=== PATIENT | male | born 1965 | race Caucasian/White ===

== ENCOUNTER 2016-12-22 05:53 | Emergency (ER) | payer BC ==
[2016-12-22] MEDS ORDERED: Phenergan 25 MG INJ ONE ×2 (06:11→07:14)
[2016-12-22] MEDS ORDERED: Sodium Chloride 0.9% 1000 ML 1,000 ML ONE (06:11)
[2016-12-22] MEDS ORDERED: Phenergan 25 MG INJ IV ONE ×2 (06:16→07:06)
[2016-12-22] MEDS ORDERED: Sodium Chloride 0.9% 1000 ML 1,000 ML IV SCH (06:30)
--- NOTE | 2016-12-22 06:40 | ERPHSYRPT ---
- History of Present Illness Time Seen by Provider: 12/22/16 05:54 Source: patient Exam Limitations: no limitations Patient Subjective Stated Complaint: AWOKE WITH DIZZINESS AND NAUSEA - DENIES PAIN - STATES THAT HE HAS TINGLING KANDIS HANDS - 'UNABLE TO WALK" - REPORTS CHILLS - GENERALIZED WEAKNESS Triage Nursing Assessment: WC TO TREATMENT AREA - UNSTEADY GAIT TO CART - MOVES ALL EXTREMITIES WITH EQUAL STRENGTH. ALERT/ORIENTED - UNPLEASANT AFFECT. SKIN PALE/COOLE/CLAMMY - NO RASH/INJURY. RESPS EASY - NON-LABORED Physician History: ABOUT 20 MINUTES AGO PT AWOKE WITH DIZZINESS(ROOM SPINNING), CHILLS, NAUSEA, DIAPHORESIS, GENERALIZED WEAKNESS AND TINGLING IN HANDS AND FEET. Allergies/Adverse Reactions: No Known Drug Allergies Allergy (Unverified 12/22/16 06:05) Home Medications: Meloxicam 15 mg [Meloxicam 15 MG] 15 mg PO DAILY 06/27/16 [History] Testosterone Cypionate 200 mg IM UD 07/05/16 [History] Tramadol HCl 50 mg [Ultram 50 mg] 1 tab PO Q6H PRN PRN 07/05/16 [History] Hx Tetanus, Diphtheria Vaccination/Date Given: Yes Hx Influenza Vaccination/Date Given: No Hx Pneumococcal Vaccination/Date Given: No Immunizations Up to Date: Yes - Review of Systems Constitutional: Chills, Weakness (GENERALIZED) Abdominal/Gastrointestinal: Nausea Neurological: Dizziness, Sensory Changes (TINGLING IN HANDS AND FEET TODAY.) Endocrine: Excessive Sweating All Other Systems: Reviewed and Negative - Past Medical History Pertinent Past Medical History: Yes Musculoskeletal History: Arthritis - Past Surgical History Past Surgical History: Yes Gastrointestinal: Cholecystectomy - Social History Smoking Status: Current every day smoker Exposure to second hand smoke: No Drug Use: none Patient Lives Alone: No - Nursing Vital Signs Nursing Vital Signs: Initial Vital Signs Temperature 97.4 F Temperature Source Oral Pulse Rate 62 Respiratory Rate 16 Blood Pressure [] 136/65 Pain Intensity 0 - Physical Exam General Appearance: alert Eye Exam: PERRL/EOMI Ears, Nose, Throat Exam: TMs normal, pharynx normal, moist mucous membranes Neck Exam: normal inspection, full range of motion Respiratory Exam: lungs clear Cardiovascular Exam: normal heart sounds Gastrointestinal/Abdomen Exam: soft, normal bowel sounds Back Exam: normal range of motion Extremity Exam: normal inspection, No pedal edema Neurologic Exam: alert, cooperative, herb counselor II-XII nml as tested, sensation nml, No motor deficits, No facial droop Skin Exam: warm, dry SpO2 Interpretation: normal SpO2: 98 Oxygen Delivery: Room Air - Course Nursing assessment & vital signs reviewed: Yes EKG Interpreted by Me: RATE (71), Sinus Rhythm, NORMAL AXIS, NORMAL INTERVALS - Radiology Exams Chest X-ray Interpretation: Interpreted by me, No Pneumonia - CT Exams Head CT Interpretation: Tele-radiologist Report (NO ACUTE INTRACRANIAL ABNORMALITY) Ordered Tests: Active Orders 24 hr Category Date Time Status Senior Android Software Engineer STAT Care 12/22/16 06:16 Active Clean Catch Urine Specimen STAT Care 12/22/16 06:16 Active EKG-ER Only STAT Care 12/22/16 06:16 Active IV Insertion STAT Care 12/22/16 06:16 Active Pulse Oximetry (ED) STAT Care 12/22/16 06:16 Active CHEST 1 VIEW (PORTABLE) Stat Exams 12/22/16 06:17 Taken HEAD WITHOUT CONTRAST [CT] Stat Exams 12/22/16 06:18 Taken AMYLASE Stat Lab 12/22/16 05:30 Completed CBC W DIFF Stat Lab 12/22/16 05:30 Completed CMP Stat Lab 12/22/16 05:30 Completed LIPASE Stat Lab 12/22/16 05:30 Completed MAGNESIUM Stat Lab 12/22/16 05:30 Completed Manual Differential NC Stat Lab 12/22/16 05:30 Completed TROPONIN Q3H Lab 12/22/16 05:30 Completed TROPONIN Q3H Lab 12/22/16 09:30 Ordered TROPONIN Q3H Lab 12/22/16 12:30 Ordered TROPONIN Q3H Lab 12/22/16 15:30 Ordered TROPONIN Q3H Lab 12/22/16 18:30 Ordered UA Stat Lab 12/22/16 06:17 Ordered Urine Triage Profile Stat Lab 12/22/16 06:17 Ordered Medication Summary Generic Name Dose Route Start Last Admin Trade Name Freq PRN Reason Stop Dose Admin Sodium Chloride 1,000 mls @ 100 mls/hr 12/22/16 06:30 12/22/16 06:20 Sodium Chloride 0.9% 1000 Ml IV 01/21/17 06:29 100 mls/hr .Q10H CARLOS Administration Magnesium Sulfate/Dextrose 100 mls @ 200 mls/hr 12/22/16 07:40 Magnesium 1 Gm / 100 Ml D5w IV 12/22/16 08:09 STAT ONE Potassium Chloride 40 meq 12/22/16 10:00 Potassium Chl 40 Meq/30 Ml Oral Solution PO 01/21/17 09:59 DAILY CARLOS Discontinued Medications Generic Name Dose Route Start Last Admin Trade Name Azalea PRN Reason Stop Dose Admin Sodium Chloride Confirm 12/22/16 06:11 Sodium Chloride 0.9% 1000 Ml Administered 12/22/16 06:12 Dose 1,000 mls @ ud .ROUTE .STK-MED ONE Promethazine HCl Confirm 12/22/16 06:11 Phenergan 25 Mg Inj Administered 12/22/16 06:12 Dose 25 mg .ROUTE .STK-MED ONE Promethazine HCl 12.5 mg 12/22/16 06:16 12/22/16 06:20 Phenergan 25 Mg Inj IV 12/22/16 06:17 12.5 mg STAT ONE Administration Promethazine HCl 6.25 mg 12/22/16 07:06 12/22/16 07:17 Phenergan 25 Mg Inj IV 12/22/16 07:07 6.25 mg STAT ONE Administration Promethazine HCl Confirm 12/22/16 07:14 Phenergan 25 Mg Inj Administered 12/22/16 07:15 Dose 25 mg .ROUTE .STK-MED ONE Lab/Rad Data: Laboratory Result Diagrams 12/22/16 05:30 12/22/16 05:30 Laboratory Results 12/22/16 12/22/16 12/22/16 Range/Units 05:30 05:30 05:30 WBC 13.0 H (4.0-10.5) K/mm3 RBC 5.45 (4.1-5.6) M/mm3 Hgb 16.4 (12.5-18.0) gm/dl Hct 47.2 (42-50) % MCV 86.6 (78-100) fl MCH 30.1 (26-32) pg MCHC 34.7 (32-36) g/dl RDW 14.7 H (11.5-14.0) % Plt Count 306 (150-450) K/mm3 MPV 10.6 H (6-9.5) fl Sodium 137 (136-145) mEq/L Potassium 3.3 L (3.5-5.1) mEq/L Chloride 101 (98-107) mEq/L Carbon Dioxide 22.8 (21-32) mEq/L Anion Gap 16.2 H (5-15) MEQ/L BUN 17 (9-20) mg/dL Creatinine 1.32 H (0.55-1.30) mg/dl Estimated GFR > 60 ML/MIN Glucose 162 H (70-110) MG/DL Calcium 8.7 (8.5-10.1) mg/dL Magnesium 1.7 L (1.8-2.4) mg/dL Total Bilirubin 1.3 H (0.2-1.0) mg/dL AST 29 (15-37) U/L ALT 37 (12-78) U/L Alkaline Phosphatase 45 L (46-116) U/L Troponin I < 0.017 (0.000-0.056) ng/ml Serum Total Protein 7.1 (6.4-8.2) gm/dL Albumin 4.2 (3.4-5.0) g/dL Amylase 42 (25-115) U/L Lipase 142 (73-393) U/L - Departure Time of Disposition: 07:57 Departure Disposition: Home Clinical Impression: VERTIGO, HYPOKALEMIA, HYPOMAGNESEMIA Condition: Fair Critical Care Time: No Instructions: Vertigo Additional Instructions: FOLLOW UP WITH PRIVATE DOCTOR TOMORROW. Prescriptions: Promethazine HCl 25 mg [Phenergan 25 mg] 25 mg PO Q4H PRN PRN #14 tablet PRN Reason: Nausea/Vomiting Meclizine HCl 25 mg [Antivert 25 mg] 25 mg PO Q8HPRN PRN #20 tablet PRN Reason: Dizziness
[2016-12-22 06:48] LABS: Mean Cell Volume 86.6 fl (78-100); Mean Corpuscular Hemoglobin 30.1 pg (26-32); Mean Platelet Volume 10.6 fl (6-9.5); Platelet Count 306 K/mm3 (150-450); Red Blood Count 5.45 M/mm3 (4.1-5.6); Red Cell Distribution Width 14.7 % (11.5-14.0)
[2016-12-22 07:12] LABS: ALBUMIN 4.2 g/dL (3.4-5.0); ALKALINE PHOSPHATASE 45 U/L (46-116); ANION GAP 16.2 MEQ/L (5-15); BILIRUBIN,TOTAL 1.3 mg/dL (0.2-1.0); BLOOD UREA NITROGEN 17 mg/dL (9-20); CHLORIDE 101 mEq/L (98-107); Carbon Dioxide 22.8 mEq/L (21-32); Glucose 162 MG/DL (70-110); LIPASE 142 U/L (73-393); MAGNESIUM 1.7 mg/dL (1.8-2.4); Potassium 3.3 mEq/L (3.5-5.1); SGOT/AST 29 U/L (15-37); SGPT/ALT 37 U/L (12-78); SODIUM 137 mEq/L (136-145); Total Protein 7.1 gm/dL (6.4-8.2)
[2016-12-22] MEDS ORDERED: Magnesium 1 Gm / 100 Ml D5W*** 100 ML IV ONE ×2 (07:40→07:55)
[2016-12-22 07:54] VITALS: O2SAT 98
[2016-12-22] MEDS ORDERED: POTASSIUM CHL 40 MEQ/30 ML ORAL SOLUTION ONE (07:55)
[2016-12-22 08:12] LABS: Collection Type CCMS
[2016-12-22 08:13] LABS: COMPLETE URINE MICROSCOPIC? NO
--- NOTE | 2016-12-22 09:00 | XRAY ---
Indication: Dizziness. Comparison: None Portable chest demonstrates normal heart, lungs, and bony thorax.
--- NOTE | 2016-12-22 09:01 | XRAY ---
Indication: Dizziness, nausea, bilateral hand tingling, and unsteady gait. Multiple contiguous axial images obtained through the head without contrast. Comparison: None Normal appearing brain parenchyma, ventricles, and bony calvarium. Visualized paranasal sinuses and mastoid air cells are pneumatized and clear. Impression: Normal CT head without contrast exam. Comment: Preliminary interpretation was made by [facility]. No discrepancy. CTDI 69.52
[2016-12-22 09:21] VITALS: BP 95/61; PULSE 63
[2016-12-22] MEDS ORDERED: POTASSIUM CHL 40 MEQ/30 ML ORAL SOLUTION PO SCH (10:00)
[2016-12-22 11:58] LABS: Eosinophil 6 % (0.00-3.0); Total Cells Counted 100
[2016-12-22 11:59] LABS: Platelet Estimate NORMAL (NORMAL)
== END 2016-12-22 10:20 | disposition home or self-care (01) ==
LOC: ED 05:53
DX: R42 Dizziness and giddiness (principal); E87.6 Hypokalemia; E83.42 Hypomagnesemia; R11.0 Nausea; R20.2 Paresthesia of skin; R61 Generalized hyperhidrosis
CPT/HCPCS: 36000; 36415; 70450; 71010; 80053; 80307; 81002; 82150; 83690; 83735; 84484; 85025; 93005; 93041; 96360; 96361; 96365; 96374; 96375; 99285; J2550; J3475

== ENCOUNTER 2021-08-26 02:26 | Emergency (ER) | payer BC, OTHER ==
[2021-08-26] MEDS ORDERED: MORPHINE SULFATE 4 MG INJ ONE (02:57)
[2021-08-26] MEDS ORDERED: Zofran 4 MG/2 ML VIAL ONE (02:57)
[2021-08-26] MEDS: MORPHINE SULFATE 4 MG INJ IV ONE (03:00)
[2021-08-26] MEDS: Zofran 4 MG/2 ML VIAL IV ONE (03:00)
[2021-08-26 03:15] LABS: Absolute Neutrophil Ct (ANC) 17.12 (1.4-6.9); BASOPHIL % 0.4 % (0.0-0.4); Basophil (Absolute #) 0.08 (0-0.4); Eosinophil % 3.5 % (0.00-5.0); Eosinophil (Absolute #) 0.73 (0-0.5); Hematocrit 50.3 % (42-50); Lymphocyte (Absolute #) 1.56 (1.0-4.6); Lymphocytes % 7.4 % (24.0-44.0); Mean Cell Volume 92.6 fl (78-100); Mean Corpuscular Hemoglobin 31.3 pg (26-32); Mean Corpuscular Hgb Concent. 33.8 g/dl (32-36); Mean Platelet Volume 10.3 fl (7.5-11.0); Monocyte (Absolute #) 1.46 (0.0-1.3); Neutrophil % 81.7 % (36.0-66.0); Platelet Count 263 K/mm3 (150-450); Red Blood Count 5.43 M/mm3 (4.1-5.6); Red Cell Distribution Width 13.5 % (11.5-14.0)
[2021-08-26 03:28] LABS: ALBUMIN 4.4 g/dL (3.5-5.0); ALKALINE PHOSPHATASE 63 U/L (38-126); ANION GAP 12.8 MEQ/L (5-15); BLOOD UREA NITROGEN 12 mg/dL (9-20); CHLORIDE 98 mmol/L (98-107); Calcium 9.7 mg/dL (8.4-10.2); Carbon Dioxide 28 mmol/L (22-30); Creatinine 1 1.12 mg/dL (0.66-1.25); EST GLOMERULAR FILTRATION RATE > 60.0 ML/MIN; Glucose 109 mg/dL (74-106); Potassium 3.9 mmol/L (3.5-5.1); SGOT/AST 24 U/L (17-59); SGPT/ALT 30 U/L (0-50); SODIUM 135 mmol/L (137-145)
--- NOTE | 2021-08-26 04:11 | ERPHSYRPT ---
- History of Present Illness Time Seen by Provider: 08/26/21 02:49 Source: patient Exam Limitations: no limitations Patient Subjective Stated Complaint: "I had neck surgery and its hurting and stiff." Triage Nursing Assessment: The patient reported having cervical spine surgery at [facility] on 08/13/21. He reported that since the surgery he has had no complications. His first follow-up with 09/11/[address] Huitron. he reported a two day onset of increasing pressure, pain, and drainage from the site. He also reported having chills and cold sweats at home. Single vertical incision noted to over the lower cervical spine with bandage in place. Upon removing the bandage, a well approximated surgical incision was found and noted to have two e xposed sutures, one at the upper most border and one at the lower most border of the incision. Mild serosanguenous drainage was noted to be coming from the bottom of the incision. Surround skin with slight erythema/edema. pain elicited with palpation. Physician History: 56 years old male status post cervical spine surgery C6/C7 on 08/13/2021 presented in the ER with 2 days history of gradually increasing swelling around incision area with some redness and noticed some serosanguineous discharge with associated increased stiffness tightness pressure in the back of neck on the left side. Difficulty movements of neck because of pressure and moderate intensity sharp pain and earlier spiked a temperature of 102.4. Patient is taking muscle relaxants which does not seem helping. Patient called his primary surgeon Dr. Stanford at [place] who was going to see him in the morning but decided to reported the ER because of fever earlier. No numbness tingling or weakness of upper or lower extremities. Timing/Duration: day(s) (2), gradual onset, worse Quality: painful Severity: moderate Location: neck Possible Causes: other Associated Symptoms: swelling/mass/lumps Allergies/Adverse Reactions: No Known Drug Allergies Allergy (Unverified 08/26/21 02:32) Home Medications: Testosterone Cypionate 200 mg IM UD 07/05/16 [History] Losartan Potassium 100 mg PO DAILY 08/26/21 [History] Hx Tetanus, Diphtheria Vaccination/Date Given: Yes Hx Influenza Vaccination/Date Given: No Hx Pneumococcal Vaccination/Date Given: No Travel Risk - International Travel Have you traveled outside of the country in past 3 weeks: No - Coronavirus Screening Are you exhibiting any of the following symptoms?: No - Vaccine Status Have you recieved a Covid-19 vaccination: Yes [employer] Associate: Pfizer - Vaccination Dates Date of 2cond Vaccination (if applicable): 12/2020 - Review of Systems Constitutional: Fever, Chills Eyes: No Symptoms Ears, Nose, & Throat: No Symptoms Respiratory: No Symptoms Cardiac: No Symptoms Abdominal/Gastrointestinal: No Symptoms Genitourinary Symptoms: No Symptoms Musculoskeletal: Neck Pain Skin: Cellulitis Neurological: No Symptoms Psychological: No Symptoms Hematologic/Lymphatic: No Symptoms Immunological/Allergic: No Symptoms - Past Medical History Pertinent Past Medical History: Yes Musculoskeletal History: Arthritis - Past Surgical History Past Surgical History: Yes Gastrointestinal: Cholecystectomy Other Surgical History: Tricep tear repair. C-spine surgery - Social History Smoking Status: Never smoker Exposure to second hand smoke: No Drug Use: none Patient Lives Alone: No - Nursing Vital Signs Nursing Vital Signs: Initial Vital Signs Temperature 97.2 F 08/26/21 02:27 Pulse Rate 108 H 08/26/21 02:27 Respiratory Rate 18 08/26/21 02:27 Blood Pressure 155/82 08/26/21 02:27 O2 Sat by Pulse Oximetry 98 08/26/21 02:27 Pain Scale Pain Intensity 5 - Physical Exam General Appearance: no apparent distress, alert Eye Exam: PERRL/EOMI, eyes nml inspection Ears, Nose, Throat Exam: normal ENT inspection, TMs normal, pharynx normal, moist mucous membranes Neck Exam: supple, limited range of motion, other (Left lower neck/upper back incision with minimal serosanguineous discharge with erythema and swelling around 3 x 2 cm. Warm and tender to touch. No fluctuation. Firm consistency.) Respiratory Exam: normal breath sounds, lungs clear Cardiovascular Exam: normal heart sounds, tachycardia Back Exam: normal inspection, normal range of motion Extremity Exam: normal inspection, normal range of motion, pelvis stable Neurologic Exam: alert, oriented x 3, cooperative, induction heat treater II-XII nml as tested, normal mood/affect, sensation nml, No motor deficits Skin Exam: normal color SpO2 Interpretation: normal SpO2: 98 O2 Delivery: Room Air Ordered Tests: Active Orders 24 hr Category Date Time Status CERVICAL SPINE WITH CONTRAST [CT] Stat Exams 08/26/21 02:50 Taken BLOOD CULTURE Stat Lab 08/26/21 03:10 Received CBC W DIFF Stat Lab 08/26/21 03:00 Completed CMP Stat Lab 08/26/21 03:00 Completed CULTURE,WOUND Stat Lab 08/26/21 03:16 Received Lactic Acid Stat Lab 08/26/21 03:51 Completed Medication Summary Generic Name Dose Route Start Last Admin Trade Name Bobbyq PRN Reason Stop Dose Admin Vancomycin HCl 2 gm in 400 mls @ 133 mls/hr 08/26/21 05:38 Vancomycin 2 Gram/400 Ml Bag IV 08/26/21 08:38 ONCE ONE Piperacillin Sod/Tazobactam 100 mls @ 200 mls/hr 08/26/21 05:36 08/26/21 05:39 Sod 3.375 gm/ Sodium Chloride IV 08/26/21 06:05 200 mls/hr STAT ONE Administration Discontinued Medications Generic Name Dose Route Start Last Admin Trade Name Freq PRN Reason Stop Dose Admin Sodium Chloride Confirm 08/26/21 05:37 Sodium Chloride 100ml Mini-Bag Plus Administered 08/26/21 05:38 Dose 100 mls @ ud IV .STK-MED ONE Morphine Sulfate 4 mg 08/26/21 02:49 08/26/21 03:00 Morphine Sulfate 4 Mg/Ml Injection IV 08/26/21 02:50 4 mg STAT ONE Administration Morphine Sulfate Confirm 08/26/21 02:57 Morphine Sulfate 4 Mg/Ml Injection Administered 08/26/21 02:58 Dose 4 mg .ROUTE .STK-MED ONE Ondansetron HCl 4 mg 08/26/21 02:49 08/26/21 03:00 Ondansetron Hcl 4 Mg/2 Ml Vial IV 08/26/21 02:50 4 mg STAT ONE Administration Ondansetron HCl Confirm 08/26/21 02:57 Ondansetron Hcl 4 Mg/2 Ml Vial Administered 08/26/21 02:58 Dose 4 mg .ROUTE .STK-MED ONE Piperacillin Sod/Tazobactam Sod Confirm 08/26/21 05:36 Piperacillin/Tazobactam Sodium 3.375 Gm Vial Administered 08/26/21 05:37 Dose 3.375 gm IV .STK-MED ONE Piperacillin Sod/Tazobactam Sod Confirm 08/26/21 05:37 Piperacillin/Tazobactam Sodium 3.375 Gm Vial Administered 08/26/21 05:38 Dose 3.375 gm IV .STK-MED ONE Lab/Rad Data: Laboratory Result Diagrams 08/26/21 03:00 08/26/21 03:00 Laboratory Results 08/26/21 08/26/21 08/26/21 Range/Units 03:51 03:00 03:00 WBC 21.0 H (4.0-10.5) K/mm3 RBC 5.43 (4.1-5.6) M/mm3 Hgb 17.0 (12.5-18.0) gm/dl Hct 50.3 H (42-50) % MCV 92.6 (78-100) fl MCH 31.3 (26-32) pg MCHC 33.8 (32-36) g/dl RDW 13.5 (11.5-14.0) % Plt Count 263 (150-450) K/mm3 MPV 10.3 (7.5-11.0) fl Gran % 81.7 H (36.0-66.0) % Eos # (Auto) 0.73 H (0-0.5) Absolute Lymphs (auto) 1.56 (1.0-4.6) Absolute Monos (auto) 1.46 H (0.0-1.3) Lymphocytes % 7.4 L (24.0-44.0) % Monocytes % 7.0 (0.0-12.0) % Eosinophils % 3.5 (0.00-5.0) % Basophils % 0.4 (0.0-0.4) % Absolute Granulocytes 17.12 H (1.4-6.9) Basophils # 0.08 (0-0.4) Sodium 135 L (137-145) mmol/L Potassium 3.9 (3.5-5.1) mmol/L Chloride 98 (98-107) mmol/L Carbon Dioxide 28 (22-30) mmol/L Anion Gap 12.8 (5-15) MEQ/L BUN 12 (9-20) mg/dL Creatinine 1.12 (0.66-1.25) mg/dL Estimated GFR > 60.0 ML/MIN Glucose 109 H (74-106) mg/dL Lactic Acid 1.7 (0.4-2.0) Calcium 9.7 (8.4-10.2) mg/dL Total Bilirubin 1.30 (0.2-1.3) mg/dL AST 24 (17-59) U/L ALT 30 (0-50) U/L Alkaline Phosphatase 63 (38-126) U/L Serum Total Protein 7.0 (6.3-8.2) g/dL Albumin 4.4 (3.5-5.0) g/dL - Progress Progress: improved, pain not gone completely, re-examined Progress Note: 08/26/21 05:59 56 years old is evaluated for increasing swelling in the upper back/lower neck at surgical site with some discharge and fever. Patient is afebrile on presentation. He is given symptomatic treatment for pain. Has a white count of 21. I have obtained CT cervical spine with contrast which showed mild C6-C7 disc space widening/endplate osteopenia and irregularity concerning for discitisosteomyelitis. Also has a large organized peripherally enhancing left paravertebral collection extending from skin deep along the posterior paravertebral musculature at the neck base reaching the left C6/C7 facet joint. I have ordered antibiotics and have paged Dr. Correia. I have discussed with Dr. Correia who told me that patient was supposed to be at [facility] this morning for surgical intervention. He wanted me to stop antibiotics. He has received one fourth dose of Zosyn only which is stopped. Per Dr. Correia he cannot except patient as the hospital does not have an ER and wanted me to discharge patient to drive up there. Patient pain is better after morphine. Patient will drive him up there at [facility] after discharge from here. He is recommended to stay n.p.o. Discussed with Dr.: Other (Dr. Correia [facility]) Counseled pt/family regarding: lab results, diagnosis, need for follow-up, rad results - Departure Departure Disposition: Home Clinical Impression: Discitis of cervical region, Cellulitis and abscess of neck Condition: Stable Critical Care Time: No Referrals: NOELLE ALMANZA MD [Primary Care Provider] - Follow up/PCP as directed
[2021-08-26] MEDS ORDERED: Zosyn 3.375 GM Vial IV ONE ×2 (05:36→05:37)
[2021-08-26] MEDS ORDERED: Sodium Chloride 100ML MINI-BAG PLUS 100 ML IV ONE (05:37)
[2021-08-26] MEDS: Zosyn 3.375 GM Vial 3.375 GM in Sodium Chloride 100ML MINI-BAG PLUS 100 ML IV ONE (05:39)
[2021-08-26] MEDS: VANCOMYCIN 2 GRAM/400 ML BAG 2 GM/400 ML PIGGYBACK IV ONE (05:58)
[2021-08-26 06:09] VITALS: BP 96/51; PULSE 85; O2SAT 96
--- NOTE | 2021-08-26 08:11 | XRAY ---
Indication: Incisional pain and drainage. Fever, nausea, and headache. Epidural abscess, hematoma, discitis. Multiple contiguous axial images obtained through the cervical spine using 100 cc Isovue 370 contrast. Sagittal and coronal reformatted images obtained. Cutaneous BB placed over region of interest. Comparison: None There are bilateral dental amalgams producing beam artifact limiting these levels. Posterior cutaneous BB is left of midline, approximate C5 level. There is underlying track of subcutaneous/left paraspinal irregular fluid collection measuring at least 7.2 X 2.9 x 2.8 cm with peripheral enhancement either postoperative hematoma/seroma versus infected fluid collection. Osseous structures demineralized consistent with patient's age. Axial images negative for acute fracture, suspicious bony lesions or spinal canal stenosis. Mild/moderate C4-C7 degenerative endplate spurring. Inferior left C6 facet appears blunted presumed postoperative. Spinal canal negative for enhancing intra/extra thecal mass or fluid collection. Sagittal and coronal reformatted images demonstrates cervical lordotic straightening, positional versus paraspinal spasm. C4-C7 degenerative disc space loss. No acute compression fracture, subluxation, or jumped facet. Visualized noncontrasted soft tissues are negative for cervical/supraclavicular lymphadenopathy. Major arteries and veins are normal in course and caliber. Supra/infraglottic airway widely patent. Visualized upper lungs demonstrates dependent atelectasis. Impression: 1. Posterior subcutaneous/left paraspinal fluid collection with peripheral enhancement as detailed. Partial differential includes postoperative hematoma/seroma versus infected fluid collection. No osseous destructive process or pathologic lymphadenopathy. 2. Incidental osteopenia and multilevel degenerative changes. Comment: Preliminary interpretation made by [facility]. No critical discrepancy.
== END 2021-08-26 06:26 | disposition home or self-care (01) ==
LOC: ED 02:26
DX: L03.221 Cellulitis of neck (principal); T81.41XA Infection following a procedure, superficial incisional surgical site, initial encounter; L02.11 Cutaneous abscess of neck; M46.42 Discitis, unspecified, cervical region
CPT/HCPCS: 36000; 36415; 72126; 80053; 83605; 85025; 87040; 87070; 87077; 87186; 96374; 96375; 99284; J2270; J2405

== ENCOUNTER 2024-08-30 15:36 | Emergency (ER) | payer BC ==
[2024-08-30 15:55] VITALS: RESP 18; TEMP 97.4; O2SAT 97
[2024-08-30 16:04] LABS: Absolute Neutrophil Ct (ANC) 6.47 x10^3/uL (1.78-5.38); BASOPHIL % 0.4 % (0.2-1.2); Basophil (Absolute #) 0.03 x10^3/uL (0.01-0.08); Eosinophil % 3.7 % (0.8-7.0); Hemoglobin 15.1 g/dL (13.7-17.5); IMMATURE GRAN # 0.03 x10^3u/L (0.001-0.031); IMMATURE GRAN % 0.4 % (0.001-0.429); Lymphocyte (Absolute #) 0.64 x10^3/uL (1.32-3.57); Mean Cell Volume 87.8 fL (79.0-92.2); Mean Corpuscular Hemoglobin 30.1 pg (25.7-32.2); Mean Corpuscular Hgb Concent. 34.3 g/dL (32.3-36.5); Mean Platelet Volume 10.2 fL (9.4-12.4); Monocyte (Absolute #) 0.56 x10^3/uL (0.30-0.82); Neutrophil % 80.5 % (34.0-67.9); Platelet Count 230 x10^3/uL (163-337); Red Blood Count 5.01 x10^6/uL (4.63-6.08); Red Cell Distribution Width 13.3 % (11.6-14.4)
--- NOTE | 2024-08-30 16:08 | ERPHSYRPT ---
- History of Present Illness Source: patient Exam Limitations: no limitations Patient Subjective Stated Complaint: pt here for hypertension today, he was dx 9 days ago for covid. pt was taken off b/p medication over a year ago. Triage Nursing Assessment: pt alert, walked in,resp easy, no cough, chest clear, abd soft, moves all ext well, no edema noted Physician History: Patient says he felt like he thought he was having a panic attack. He is had them before. He said he was jittery on the inside. He was hyperventilating a little bit. Had some chest pain. He took his blood pressure and it was around 200/100. He decided he needed to come in to have his heart checked out. He is on day 9 of COVID. He is breathing easily. He does not have a lot of COVID symptoms that are worrisome. She is currently generalized malaise and so forth. He is feeling better now and his blood pressure is going down. He and his are here and they basically wanted to make sure his heart was okay. Allergies/Adverse Reactions: No Known Drug Allergies Allergy (Verified 08/30/24 15:43) Home Medications: Duloxetine HCl 1 tab PO DAILY 09/06/21 [History] Levothyroxine Sodium 100 Mcg [Synthroid 100 Mcg] 1 tab PO DAILY 09/06/21 [History] Hx Tetanus, Diphtheria Vaccination/Date Given: No Hx Influenza Vaccination/Date Given: No Hx Pneumococcal Vaccination/Date Given: No Immunizations Up to Date: Yes Travel Risk - International Travel Have you traveled outside of the country in past 3 weeks: No - Emerging Infectious Disease Are you exhibiting symptoms associated with any current EIDs: No - Review of Systems Constitutional: No Symptoms Eyes: No Symptoms Respiratory: Cough Cardiac: No Symptoms Abdominal/Gastrointestinal: No Symptoms Neurological: Dizziness (Lightheadedness) Psychological: Anxiety (Acute episode today.) Endocrine: No Symptoms Hematologic/Lymphatic: No Symptoms All Other Systems: Reviewed and Negative - Past Medical History Pertinent Past Medical History: Yes Neurological History: No Pertinent History ENT History: No Pertinent History Cardiac History: Hypertension Respiratory History: No Pertinent History Endocrine Medical History: Hypothyroidism Musculoskeletal History: Arthritis, Degenerative Disk Disease GI Medical History: Gallbladder Disease History: No Pertinent History Psycho-Social History: Anxiety Male Reproductive Disorders: No Pertinent History - Past Surgical History Past Surgical History: Yes Neuro Surgical History: No Pertinent History Cardiac: No Pertinent History Respiratory: No Pertinent History Gastrointestinal: Cholecystectomy Genitourinary: No Pertinent History Musculoskeletal: Orthopedic Surgery Male Surgical History: No Pertinent History Other Surgical History: Tricep tear repair. C-spine surgery - Social History Smoking Status: Former smoker Exposure to second hand smoke: No Drug Use: none Patient Lives Alone: No - Social Determinants of Health Will the patient participate in the screening: Declined to provide - Nursing Vital Signs Nursing Vital Signs: Initial Vital Signs Temperature 97.4 F 08/30/24 15:54 Pulse Rate 86 08/30/24 15:54 Respiratory Rate 18 08/30/24 15:54 Blood Pressure 155/86 08/30/24 15:54 O2 Sat by Pulse Oximetry 97 08/30/24 15:54 Pain Scale Pain Intensity 0 - Physical Exam General Appearance: no apparent distress Respiratory Exam: normal breath sounds, No chest tenderness, No respiratory distress Cardiovascular Exam: regular rate/rhythm, normal heart sounds Gastrointestinal/Abdomen Exam: soft, normal bowel sounds, distention (Mild distention. I think is probably from swallowing air during hyperventilation.) Extremity Exam: normal inspection, normal range of motion Neurologic Exam: alert, oriented x 3, cooperative, normal mood/affect, nml cerebellar function Skin Exam: normal color, warm, dry SpO2: 97 - Course EKG Interpreted by Me: RATE, Sinus Rhythm, NORMAL AXIS, NORMAL INTERVALS, NORMAL QRS Ordered Tests: Active Orders 24 hr Category Date Time Status EKG-ER Only STAT Care 08/30/24 15:58 Active CBC W DIFF Stat Lab 08/30/24 15:45 Completed CMP Stat Lab 08/30/24 15:45 Completed MAG [MAGNESIUM] Stat Lab 08/30/24 15:45 Completed TROPONIN Q4H Lab 08/30/24 15:45 Completed TROPONIN Q4H Lab 08/30/24 20:00 Ordered TROPONIN Q4H Lab 08/31/24 00:00 Ordered Lab/Rad Data: Laboratory Result Diagrams 08/30/24 15:45 08/30/24 15:45 Laboratory Results 08/30/24 08/30/24 08/30/24 Range/Units 15:45 15:45 15:45 WBC 8.0 (4.23-9.07) x10^3/uL RBC 5.01 (4.63-6.08) x10^6/uL Hgb 15.1 (13.7-17.5) g/dL Hct 44.0 (40.1-51.0) % MCV 87.8 (79.0-92.2) fL MCH 30.1 (25.7-32.2) pg MCHC 34.3 (32.3-36.5) g/dL RDW 13.3 (11.6-14.4) % Plt Count 230 (163-337) x10^3/uL MPV 10.2 (9.4-12.4) fL Gran % 80.5 H (34.0-67.9) % Immature Gran % (Auto) 0.4 (0.001-0.429) % Nucleat RBC Rel Count 0.0 (0.00-0.2) % Eos # (Auto) 0.30 (0.04-0.54) x10^3/uL Immature Gran # (Auto) 0.03 (0.001-0.031) x10^3u/L Absolute Lymphs (auto) 0.64 L (1.32-3.57) x10^3/uL Absolute Monos (auto) 0.56 (0.30-0.82) x10^3/uL Absolute Nucleated RBC 0.00 (0.00-0.012) x10^3u/L Lymphocytes % 8.0 L (21.8-53.1) % Monocytes % 7.0 (5.3-12.2) % Eosinophils % 3.7 (0.8-7.0) % Basophils % 0.4 (0.2-1.2) % Absolute Granulocytes 6.47 H (1.78-5.38) x10^3/uL Basophils # 0.03 (0.01-0.08) x10^3/uL Sodium 141 (135-145) mmol/L Potassium 4.4 (3.5-5.1) mmol/L Chloride 104 (98-107) mmol/L Carbon Dioxide 29 (22-30) mmol/L Anion Gap 12.4 (5-15) MEQ/L BUN 16 (9-20) mg/dL Creatinine 1.02 (0.66-1.25) mg/dL Estimated GFR 85.2 ML/MIN Glucose 114 H (74-106) mg/dL Calcium 8.8 (8.4-10.2) mg/dL Magnesium 1.8 (1.6-2.3) mg/dL Total Bilirubin 0.50 (0.2-1.3) mg/dL AST 32 (17-59) U/L ALT 23 (0-50) U/L Alkaline Phosphatase 73 (38-126) U/L Troponin I < 0.012 (0.000-0.033) ng/mL Serum Total Protein 6.7 (6.3-8.2) g/dL Albumin 4.5 (3.5-5.0) g/dL - Progress Progress: improved Progress Note: Patient was stable throughout stay. We ruled out a cardiovascular event. He has had panic attacks before says this feels similar. He thinks that that is what it is. I am not suspicious for pulmonary embolism either. His troponin and EKGs all look good. Or disc and I discharged him to home. 08/30/24 17:38 Medical Desision Making - Independent Historian Additional History obtained from: Spouse - Diagnostic Testing Diagnostic test were ordered, analyzed, and reviewed by me: Yes - Risk of complications Minimal Risk: Minimal risk of morbidity - Departure Departure Disposition: Home Clinical Impression: Anxiety Condition: Stable Critical Care Time: No Referrals: NOELLE ALMANZA MD [Primary Care Provider] - Follow up/PCP as directed Instructions: Anxiety, Adult ED Additional Instructions: Return as needed.
[2024-08-30 16:17] LABS: ALBUMIN 4.5 g/dL (3.5-5.0); BILIRUBIN,TOTAL 0.5 mg/dL (0.2-1.3); Calcium 8.8 mg/dL (8.4-10.2); Creatinine 1 1.02 mg/dL (0.66-1.25); EST GLOMERULAR FILTRATION RATE 85.2 ML/MIN; MAGNESIUM 1.8 mg/dL (1.6-2.3); Total Protein 6.7 g/dL (6.3-8.2)
[2024-08-30 16:19] LABS: Potassium 4.4 mmol/L (3.5-5.1)
[2024-08-30 16:20] LABS: ANION GAP 12.4 MEQ/L (5-15)
[2024-08-30 17:45] VITALS: BP 106/60; PULSE 70
== END 2024-08-30 17:52 | disposition home or self-care (01) ==
LOC: ED 15:36
DX: F41.9 Anxiety disorder, unspecified (principal); R07.9 Chest pain, unspecified; R53.81 Other malaise; R42 Dizziness and giddiness; R05.9 Cough, unspecified; U07.1 COVID-19
CPT/HCPCS: 36415; 80053; 83735; 84484; 85025; 93005; 99283; 99284